=== PATIENT | female | born 1945 | race Caucasian/White ===

== ENCOUNTER → 2018-11-02 | Outpatient (CLI) | payer OTHER ==
[~2018-11-02] MED LIST: ARIXTRA SUBQ; ASPIR 8181 MG PO; ASPIRIN325 PO; BORAGE OIL PO; CELEXA20 MG PO; CENTRUM COMPLE1 EACH PO; CLARITIN10 MG PO; CO Q-10200 MG PO; DICLOFENAC SOD50 MG PO; EQL FLAXSEED O1 EACH PO; ESTRACE VAG VAG; FISH OIL 1,2001 EAC3 PO; FLONASE 0.05%50 MCG NASAL; GABAPENTIN 100100 MG PO; LASIX 20 MG TAB20 MG PO; METFORMIN HCL500 MG PO; MIRALAX255 GM PO; NASAL DECONGES120 MG PO; NATURAL CALCIU500 M1 PO; NEXIUM40 MG PO; NITROGLYCERIN0.4 MG SUBLING; NORCO 5-325 TA1 EACH PO; NORVASC5 MG PO; OXYCODONE HCL5 M1 PO; PERCOCET 5-3251 EACH PO; PRILOSEC 20 MG20 MG PO; VALTREX1000 MG PO; VITAMIN E1000 UNI3 PO; ZOCOR40 MG PO
== END ==
LOC: M.RAD 12:49
DX: N91.2 Amenorrhea, unspecified (principal); Z78.0 Asymptomatic menopausal state

== ENCOUNTER → 2021-01-08 | Outpatient (CLI) | payer OTHER | LOC: M.RAD 12:29 | PROVIDERS: ATTEND Family Medicine | DX: Z12.31 Encounter for screening mammogram for malignant neoplasm of breast (principal) ==

== ENCOUNTER → 2021-06-22 | Outpatient (CLI) | payer OTHER ==
--- NOTE | 2021-06-22 16:40 | CARDNUC ---
[place] [address] CARDIAC NUCLEAR IMAGING REPORT Name: WANDERCORIN FARMER GAGE Room: [facility]#: [id number] Admission: 06/22/21 Attend Phys: Marva Menjivar, Discharge: Date of : 49 Date of Service: 06/22/21 1640 Report #: [id number] THIS REPORT FOR: cc: Corin Wallis Linda J. DO Liston, Michael J. MD [facility] ~ APPROVED REPORT Imaging Protocol: Rest Tc-99m/Stress Tc-99m 1 day Study performed: 06/22/2021 11:17:39 Indication: Chest pain, Dyspnea, Fatigue Patient Location: Out-Patient Stress Tech: Antionette Fuentes Stress Nurse: Heather Burks RN NM Tech:ABELARDO Alan Ht: 5 ft 4 in Wt: 168 lbs BSA: 1.82 m2 HR: 98 bpm BP: 163/73 mmHg BMI: 28.83 Rhythm: NSR Medical History Medical History: HTN, SOB, , Hyperlipidemia Medications: HCTZ, Crestor, Amlodipine Allergies: Lipitor, Mobic, Wasp venom Cardiac Risk Factors: Age, Hyperlipidemia, HTN Previous Cardiac Procedures: None Pretest Chest Pain Characteristics: None Exercise History: Physically active Physical Disabilities: None Meds Held (24 hrs): Amlodipine Resting Data Rest SPECT myocardial perfusion imaging was performed in supine position 30 minutes following the intravenous injection of 10.5 mCi of Tc-99m Sestamibi. Time of rest injection: 1025 Date: 06/22/2021 The images were gated to evaluate regional wall motion and calculate left ventricular ejection fraction. Administration Route: IV Administration Site: Right AC [place] [address] CARDIAC NUCLEAR IMAGING REPORT Name: WANDERCORIN SUE Room: [facility]#: [id number] Admission: 06/22/21 Attend Phys: Marva Menjivar, Discharge: Date of : 49 Date of Service: 06/22/21 [facility] Report #: [id number] At peak stress, the patient was injected intravenously with 34.2mCi of Tc-99m Sestamibi. Time of stress injection: 1125 Date: 06/22/2021 Administration Route: IV Administration Site: Right AC Gated Stress SPECT was performed 30 minutes after stress injection. The images were gated to evaluate regional wall motion and calculate left ventricular ejection fraction. Prone imaging was performed. Stress Test Details Stress Test: Exercise stress testing was performed using a Ruben protocol. HR Max Heart Rate (APMHR): 146 bpm Resting HR: 98 bpm Target HR (85% APMHR): 124 bpm Max HR Achieved: 140 bpm % of APMHR: 95 Recovery HR: 99 bpm BP Resting BP: 163/73 mmHg Max BP: 216/65 mmHg Recovery BP: 183/78 mmHg ECG Resting ECG: Sinus Rhythm Stress ECG: Sinus Tachycardia ST Change: None Arrhythmia: None Recovery ECG: Sinus Rhythm Recovery ST Change: None Recovery Arrhythmia: None Clinical Reason for Termination: Completed protocol Stress Symptoms: Chest pain, Dyspnea Exercise duration: 4 min 59 sec Exercise capacity: 7.03 METs Overall Exercise Capacity for Age: Poor The patient exhibited limited exercise tolerance. She noted mild chest pressure and shortness of breath with exercise. Nurse Comments Pt reported 1/10 CP and SOA while walking. Chest pain resolved when treadmill was slowed to recovery walk; SOA resolved shortly [place] [address] CARDIAC NUCLEAR IMAGING REPORT Name: CORIN VIRAMONTES Room: [facility]#: [id number] Admission: 06/22/21 Attend Phys: Marva Menjivar, Discharge: Date of : 49 Date of Service: 06/22/21 [facility] Report #: [id number] sat down. Stress ECG Conclusion Baseline twelve-lead EKG shows sinus rhythm without significant ST segment or T wave abnormality. EKGs obtained during and post exercise show sinus rhythm and sinus tachycardia with no significant ST segment depression when compared to baseline. There were no stress-induced arrhythmias. Study Quality Study: Good Artifact: No artifact Study Data At rest, the left ventricular ejection fraction was 81%.. Post stress, the left ventricular ejection was 78%.. Perfusion Perfusion images obtained at rest and post exercise stress showed uniform uptake of the radioisotope throughout the myocardium. There were no defects to suggest infarct or ischemia. Wall Motion Normal left ventricular wall motion. Nuclear Conclusion ECG Findings: negative for ischemia Clinical Findings: equivocal Exercise Capacity: abnormal Left Ventricular Function: normal Risk Study: low Perfusion study show no defect to suggest infarct or ischemia. Left ventricular systolic function is normal on gated studies. This is a low risk study. <Conclusion> Baseline twelve-lead EKG shows sinus rhythm without significant ST segment or T wave abnormality. EKGs obtained during and post exercise show sinus rhythm and sinus tachycardia with no significant ST segment depression when compared to baseline. There were no stress-induced arrhythmias. <ELECTRONICALLY SIGNED> By: Jorge A Turpin MD, FACC 06/22/21 1640 1640 1640 Jorge A Turpin MD, FACC /INF
== END ==
LOC: M.NUC 06-07 09:09 → M.CRD 08:16 → M.NUC 13:00
PROVIDERS: ATTEND Internal Medicine
DX: R07.89 Other chest pain (principal); R06.00 Dyspnea, unspecified; R53.83 Other fatigue